=== PATIENT | female | born 1940 | race Caucasian/White ===

== ENCOUNTER → 2020-02-20 | Outpatient (CLI) | payer MEDICARE ==
--- NOTE | 2020-02-20 10:28 | RAD ---
Ultrasound deep venous system of the lower extremities 02/20/2020. Reason for exam: Swelling. Color Doppler and spectral waveform analysis was performed along with real-time grayscale technique. The deep venous system of both lower extremities shows normal compressibility and normal Doppler flow and augmentation of flow extending from the common femoral segment to the popliteal segment. The visualized calf veins also appear normal. IMPRESSION: No evidence of DVT. Electronically signed by: Pancho Curiel Jr., MD (02/20/2020 10:26 AM) [id number]
== END | disposition home or self-care (01) ==
LOC: US 08:56
PROVIDERS: ATTEND Family Medicine
DX: R60.0 Localized edema (principal)
CPT/HCPCS: 93970

== ENCOUNTER → 2021-09-25 | Outpatient (CLI) | payer MEDICARE ==
--- NOTE | 2021-09-25 14:27 | RAD ---
EXAM: Maxillofacial CT without contrast. HISTORY: Fall. TECHNIQUE: Computed tomographic images of the maxillofacial bones were obtained without contrast. *One or more of the following individualized dose reduction techniques were utilized for this examina tion: 1. Automated exposure control. 2. Adjustment of the mA and/or kV according to patient size. 3. Use of iterative reconstruction technique. COMPARISON: None. FINDINGS: No displaced fracture is seen. There is a small inferior medial left maxillary sinus mucous retention cyst. There is no significant nasal septal deviation. There is no sinus air-fluid level or opacification. There is no sinus wall erosion or thickening. There is degenerative subchondral sclerosis and bony remodeling involving the temporomandibular joint s. The majority of the teeth are absent. There is a left periorbital soft tissue contusion. The masto id air cells are clear. There is no acute intracranial finding. There is evidence of lens surgery. There is degenerative change involving the visualized cervical spine. The combination of disc bulges, endplate remodeling, facet and uncovertebral arthropathy contributing to moderate right foraminal st enosis at C3-C4, severe bilateral foraminal stenosis at C4-C5 and severe right and mild left foramina l stenosis at C5-C6. There is calcified atherosclerotic plaque within the carotid bifurcations. IMPRESSION: 1. Left periorbital soft tissue contusion. 2. No acute maxillofacial bone fracture. 3. 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 4. Degenerative change involving the cervical spine, not formally assessed on this exam. Electronically signed by: Mary Wong MD (09/25/2021 2:24 PM) [id number]
== END ==
LOC: CT 13:15
PROVIDERS: ATTEND Family Medicine
DX: S05.12XA Contusion of eyeball and orbital tissues, left eye, initial encounter (principal); I65.23 Occlusion and stenosis of bilateral carotid arteries; M26.601 Right temporomandibular joint disorder, unspecified; M26.602 Left temporomandibular joint disorder, unspecified; M47.812 Spondylosis without myelopathy or radiculopathy, cervical region; M48.02 Spinal stenosis, cervical region; M48.8X2 Other specified spondylopathies, cervical region; W01.0XXA Fall on same level from slipping, tripping and stumbling without subsequent striking against object, initial encounter; Y93.89 Activity, other specified; Y92.89 Other specified places as the place of occurrence of the external cause; Y99.8 Other external cause status
CPT/HCPCS: 70486